=== PATIENT | male | born 1965 | race African-American/Black ===

== ENCOUNTER 2018-10-20 13:00 | Emergency (ER) | payer MEDICAID, OTHER ==
--- NOTE | 2018-10-20 17:48 | ED ---
Back Pain - HPI Summary HPI Summary: Pt here w/ worsening of back pain and developed Lt lateral thigh pain yesterday while walking. Denies numbness, tingling, weakness or change in bowel/bladder habits. Has "disc issues" and had an MRI -follows w/ Dr. Hilary Trujillo however has consult with neurosurgery this week. Reports his roommates recently took is medications as it was "time (for him) to move out". He was recently approved for Section 8 housing but has not found a place to live yet - he is staying at a friend's house in the [facility]. Has been taking oxycodone 10mg TID plus gabapentin 600mg TID daily for back pain (confirmed with [facility]/pharmacy check). Needs meds until he can be seen by Dr. Trujillo this week. No new acute injuries. Concerned about withdrawal from medication - no sx at this time. - History of Current Complaint Chief Complaint: EDExtremityLower Stated Complaint: LEFT LEG PAIN PER EMS Time Seen by Provider: 10/20/18 14:59 Hx Obtained From: Patient Pain Intensity: 8 - Allergies/Home Medications Allergies/Adverse Reactions: Allergies Allergy/AdvReac Type Severity Reaction Status Date / Time No Known Allergies Allergy Verified 10/20/18 13:05 PMH/Surg Hx/FS Hx/Imm Hx Previously Healthy: Yes Endocrine/Hematology History: Denies: Hx Anticoagulant Therapy, Hx Diabetes Cardiovascular History: Reports: Hx Hypertension - MEDICATED Denies: Hx Pacemaker/ICD History: Denies: Hx Renal Disease Musculoskeletal History: Reports: Hx Back Problems - disc issues per pt Sensory History: Denies: Hx Hearing Aid Psychiatric History: Denies: Hx Eating Disorder, Hx Panic Disorder, Hx of Violent Episodes Against Others - Surgical History Surgery Procedure, Year, and Place: HERNIA REPAIR. RT SHOULDER SURGERY RCT Infectious Disease History: No Infectious Disease History: Denies: Traveled Outside the [place] in Last 30 Days - Social History Lives: With Family - with friend Alcohol Use: None Substance Use Type: Reports: Synthetic Drugs Substance Use Comment - Amount & Last Used: rx'd oxycodone by PCP Hx Tobacco Use: Yes Type: Cigarettes Length of Time of Smoking/Using Tobacco: 20 YRS Have You Smoked in the Last Year: Yes Review of Systems Constitutional: Negative Negative: Fever, Chills, Fatigue Eyes: Negative ENT: Negative Cardiovascular: Negative Respiratory: Negative Gastrointestinal: Negative Genitourinary: Negative Positive: Arthralgia Skin: Negative Neurological: Negative Positive: Anxious All Other Systems Reviewed And Are Negative: Yes Physical Exam Triage Information Reviewed: Yes Vital Signs On Initial Exam: Initial Vitals Temp Pulse Resp BP Pulse Ox 98.9 F 97 12 141/87 99 10/20/18 13:00 10/20/18 13:00 10/20/18 13:00 10/20/18 13:00 10/20/18 13:00 Vital Signs Reviewed: Yes Appearance: Positive: Well-Appearing, Pain Distress - mild while lying on stretcher - worse w/ movement, ambulation, Thin Skin: Positive: Warm, Skin Color Reflects Adequate Perfusion, Dry Head/Face: Positive: Normal Head/Face Inspection Eyes: Positive: EOMI ENT: Positive: Hearing grossly normal, Pharynx normal - mucosa moist. Negative : Nasal drainage Respiratory/Lung Sounds: Positive: Breath Sounds Present Cardiovascular: Positive: Normal, RRR. Negative: Leg Edema Left, Leg Edema Right Abdomen Description: Positive: Nontender, Soft Musculoskeletal: Positive: Strength/ROM Intact, Pain @ - Lt lateral thigh TTP along ITB - no SI joint pain Neurological: Positive: Normal, Sensory/Motor Intact, Alert, Oriented to Person Place, Time Psychiatric: Positive: Anxious - but pleasant, cooperative Diagnostics - Vital Signs Vital Signs Temp Pulse Resp BP Pulse Ox 10/20/18 13:00 98.9 F 97 12 141/87 99 - Laboratory Lab Statement: Any lab studies that have been ordered have been reviewed, and results considered in the medical decision making process. Back Pain Course/Dx - Course Course Of Treatment: Suspect ITB syndrome from abnormal gait with back pain. Recommended conservative care for ITB syndrome - NSAID's, heat, stretches, topical analgesics and PT if warranted by PCP. Also provided with short supply of oxycodone and gabapentin until he can be seen by Dr. Trujillo this week to prevent withdrawal (meds confirmed on audit). - Diagnoses Provider Diagnoses: Lumbar pain, ITB syndrome Discharge - Sign-Out/Discharge Documenting (check all that apply): Patient Departure Patient Received Moderate/Deep Sedation with Procedure: No - Discharge Plan Condition: Stable Disposition: HOME Prescriptions: Gabapentin CAP(*) [Neurontin 300 CAP(*)] 600 mg PO TID #12 cap Gabapentin CAP(*) [Neurontin 300 CAP(*)] 600 mg PO TID #12 cap Oxycodone TAB(NF) [Oxycodone HCl 10 MG] 10 mg PO Q8H PRN #6 tab MDD 3 PRN Reason: Pain oxyCODONE TAB* [Roxycodone TAB 5 mg*] 10 mg PO Q8H PRN #12 tab MDD 6 PRN Reason: Pain Patient Education Materials: Chronic Back Pain (DC), Iliotibial Band Syndrome ( ED) Referrals: Malorie Trujillo MD [Primary Care Provider] - Additional Instructions: Read educational handouts for care of your back pain and ITB syndrome. You may benefit from physical therapy if your thigh pain does not improve - inquire with your PCP. Follow-up with PCP and neurosurgery for back issue. You have been given a short course of your daily pain medications as well until this week when you can be seen by Dr. Trujillo - call Monday to schedule appointment. *If you develop numbness, tingling, weakness or change in bowel/bladder habits, return to the ED - Billing Disposition and Condition Condition: STABLE Disposition: Home
[2018-10-20] MEDS ORDERED: oxyCODONE TAB* 5 MG TAB PO ONE (17:53)
[2018-10-20] MEDS ORDERED: Ketorolac INJ* 60 MG/2 ML VIAL IM ONE (17:53)
[2018-10-20] MEDS ORDERED: Gabapentin TAB(NF) 600 MG PO ONE (17:54)
[2018-10-20] MEDS ORDERED: Gabapentin CAP(*) 300 MG PO ONE (18:00)
[2018-10-20 18:22] VITALS: BP 141/78
== END 2018-10-20 18:21 | disposition home or self-care (01) ==
LOC: ED 13:00
DX: M54.5 Low back pain (principal); M76.32 Iliotibial band syndrome, left leg; I10 Essential (primary) hypertension; F17.210 Nicotine dependence, cigarettes, uncomplicated
CPT/HCPCS: 96372; 99282; A9270-GY; J1885

== ENCOUNTER 2018-10-24 15:22 | Emergency (ER) | payer OTHER ==
[2018-10-24] MEDS ORDERED: oxyCODONE/Acetamin 5/325 MG* TAB PO ONE ×2 (19:05→19:47)
[2018-10-24] MEDS ORDERED: Ketorolac INJ* 30 MG/ML 1 ML VIAL IM ONE (19:47)
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
[2018-10-24] MEDS ORDERED: predniSONE TAB* 20 MG PO ONE (20:34)
[2018-10-24 21:11] VITALS: BP 144/87
== END 2018-10-24 21:10 | disposition home or self-care (01) ==
LOC: ED 15:22
DX: M79.605 Pain in left leg (principal); I10 Essential (primary) hypertension; F17.210 Nicotine dependence, cigarettes, uncomplicated; Z79.899 Other long term (current) drug therapy
CPT/HCPCS: 96372; 99282; A9270-GY; J1885; J7512

== ENCOUNTER 2019-01-23 01:18 | Emergency (ER) | payer MEDICAID ==
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
[2019-01-23 04:25] VITALS: BP 153/96
== END 2019-01-23 04:34 | disposition home or self-care (01) ==
LOC: ED 01:18
DX: K40.90 Unilateral inguinal hernia, without obstruction or gangrene, not specified as recurrent (principal); I10 Essential (primary) hypertension; F17.210 Nicotine dependence, cigarettes, uncomplicated; Z79.899 Other long term (current) drug therapy
CPT/HCPCS: 99282

== ENCOUNTER 2019-07-14 20:24 | Emergency (ER) | payer MEDICAID ==
--- OUTSIDE RECORDS SUMMARY | 2019-07-14 20:34 | XMS REPORT | Summary of Care ---
:1965 Author Organization [facility] Address [address] [place] [address] Care Team Providers Name Role Phone Malorie Trujillo MD Primary Care Provider Reason for Visit Reason Comments Follow-up Encounter Details Date Type Department Care Team Description 06/13/2019 Office Visit [facility], [facility] retinal Vision Care MD Mikala detachment (Primary [address]) [address] [place] [id number] [phone] Allergies No Known Allergiesdocumented as of this encounter (statuses as of 06/16/2019) Medications Medication Sig Dispensed Refills Start Date End Date Status isosorbide mononitrate Take 1 tablet by 30 tablet 2 12/29/2018 12/28/2019 Active (IMDUR) 30 MG 24 hr mouth daily tablet Additional information Patient not taking. Reported on 03/05/2019 2:40 PM Sennosides (SENNA) 8.6 MG Take 2 tablets by mouth 120 each 0 12/29/2018 Active TABS tablet nightly Additional information Patient not taking. Reported on 03/05/2019 2:40 PM cyclopentolate (CYCLODRYL) 1 % Place 1 drop into the 2 mL 0 01/09/2019 Active ophthalmic solution right eye Three times daily Additional information Patient not taking. Reported on 05/09/2019 9:17 AM hydrochlorothiazide hydrochlorothiazide 25 mg tablet 0 Active (HYDRODIURIL) 25 MG tablet Take 1 tablet every day by oral route for 30 days. lisinopril (PRINIVIL,ZESTRIL) lisinopril 20 mg tablet 0 Active 20 MG tablet Take 1 tablet every day by oral route for 30 days. Oxycodone HCl 10 MG TABS oxycodone 10 mg tablet 0 Active Take 1 tablet 3 times a day by oral route as needed for 30 days. naloxone (NARCAN) 4 MG/0.1ML Narcan 4 mg/actuation nasal spray 0 Active nasal spray use as directed Atropine Sulfate 1 % Place 1 drop into the right 2 mL 2 05/09/2019 Active Ophthalmic Solution eye Three times daily Additional information Patient not taking. Reported on 06/12/2019 9:25 AM Ofloxacin 0.3 % Ophthalmic Place 1 drop into the 5 mL 0 06/12/20192019 Active Solution (OCUFLOX) right eye Four times daily for 10 days prednisoLONE Acetate 1 % Place 1 drop into 5 mL 0 06/12/2019 Active Ophthalmic Suspension (PRED both eyes Four times FORTE) daily Shake bottle Hcijjznn-Gvhbdmcre-Whflfdwi Place 1 inch into the 7.5 g 1 06/12/2019 Active 0.1 % Ophthalmic Ointment right eye Three times (MAXITROL) daily Hospital, Clinic, or Ordered Dose Route Frequency Start Date End Date Status Other Facility Administered Medication proparacaine (ALCAINE) 1 drop Both Eyes Once 06/13/2019 06/13/2019 Ended 0.5 % ophthalmic solution 1 drop tropicamide (MYDRIACYL) 1 drop Both Eyes Once 06/13/2019 06/13/2019 Ended 1 % ophthalmic solution 1 drop phenylephrine (MYDFRIN) 1 drop Both Eyes Once 06/13/2019 06/13/2019 Ended 2.5 % ophthalmic solution 1 drop documented as of this encounter (statuses as of 06/16/2019) Active Problems Problem Noted Date Right retinal detachment 01/17/2019 Osteomyelitis 12/15/2018 Acute septic pulmonary embolism 11/10/2018 Polysubstance (including opioids) dependence, daily use 11/09/2018 Sepsis due to methicillin resistant Staphylococcus aureus (MRSA) 11/08/2018 Bilateral endophthalmia 11/08/2018 Septic embolism 11/08/2018 Abscess of upper extremity 11/08/2018 IVDU (intravenous drug user) 11/08/2018 Acute myopericarditis 11/07/2018 Dysphagia 09/10/2013 Back pain 07/02/2013 Postop check 04/23/2013 GERD (gastroesophageal reflux disease) 10/09/2012 Cholelithiasis 10/09/2012 SI joint arthritis 08/03/2012 Acute respiratory failure with hypoxia Pleural effusion documented as of this encounter (statuses as of 06/16/2019) Resolved Problems Problem Noted Date Resolved Date Skin bulla 11/12/2018 12/04/2018 Overview: Right 3rd finger Pressure injury of coccygeal region, unstageable 11/09/2018 12/18/2018 documented as of this encounter (statuses as of 06/16/2019) Social History Tobacco Use Types Packs/Day Years Used Date Current Some Day Smoker Cigarettes 0.5 Smokeless Tobacco: Former User Comments: 4-5 a day Alcohol Use Drinks/Week oz/Week Comments No Sex Assigned at Date Recorded Not on file Job Start Date Occupation Industry Not on file Not on file Not on file Travel History Travel Start Travel End No recent travel history available. documented as of this encounter Last Filed Vital Signs Not on filedocumented in this encounter Patient Instructions Patient InstructionsMikala Dye MD - 06/13/2019 12:30 PM ESTPlease follow the physician's instructions as communicated during the office visit. Medications should be taken/given as prescribed or recommended by the physician. Please keep the follow-up appointment as recommended by the physician and return sooner if any changes, questions, or concerns arise. documented in this encounter Progress Notes Mikala Dye MD - 06/13/2019 12:30 PM EST Chief Complaint Patient presents with Follow-up HPI 1 day f/u- PO PPV OD Hx: Recurrent rhegmatogenous RD, OD Last edited by Cyndee Izaguirre on 06/13/2019 12:29 PM. (History) History: Patient's medications, allergies, past medical, surgical, social, and family histories werereviewed and updated as appropriate. Past Surgical History: Procedure Laterality Date HEMORRHOID SURGERY NONE MD DEBRIDEMENT, SKIN, SUB-Q TISSUE,MUSCLE,BONE,=<20 SQ CM Bilateral 11/10/2018 Procedure: 1. Fasciotomy with debridement of left thigh 2. I & D of fluid collection per Dr. Page; Surgeon: Jermain Page MD; Location: OR 5E; Service : Orthopedics; Laterality: Bilateral; MD DEBRIDEMENT, SKIN, SUB-Q TISSUE,MUSCLE,BONE,=<20 SQ CM Left 2018 Procedure: DEBRIDEMENT; SKIN, SUBQ TISSUE, MUSCLE, & BONE OF BILATERAL THIGHS, I&D BILATERAL ARM ABSCESSES; Surgeon: oJse Lockwood MD; Location: OR 5E; Service: Orthopedics; Laterality: Left; MD INJ DX/THER AGNT PARAVERT FACET JOINT, LUMBAR/SAC, 2ND LEVEL Right Procedure: RIGHT LUMBAR FACET LEVEL L4, L5 ALA INJECTIONS WITH C-ARM; Surgeon : Daron Romero MD; Location: OR [facility]; Service: Pain; Laterality: Right; RETINAL DETACHMENT SURGERY Right 01/08/2019 01/08/19 (lensectomy, retinectomy, EL, PPV, SO and MAGEN of Vancomycin ROTATOR CUFF REPAIR right Past Medical History: Diagnosis Date Bipolar 1 disorder GERD (gastroesophageal reflux disease) Herniated disc Hiatal hernia Hypertension Polysubstance (including opioids) dependence, daily use 11/09/2018 Pulmonary embolism 11/2018 Retinal detachment Vision abnormalities History reviewed. No pertinent family history. Social History Socioeconomic History Marital status: Legally Spouse name: Not on file Number of children: Not on file Years of education: Not on file Highest education level: Not on file Occupational History Not on file Social Needs Financial resource strain: Not on file Food insecurity: Worry: Not on file Inability: Not on file Transportation needs: Medical: Not on file Non-medical: Not on file Tobacco Use Smoking status: Current Some Day Smoker Packs/day: 0.50 Types: Cigarettes Smokeless tobacco: Former User Tobacco comment: 4-5 a day Substance and Sexual Activity Alcohol use: No Drug use: Yes Types: Cocaine Comment: last used Cocaine few days ago, sniffed a few lines. Sexual activity: Not on file Lifestyle Physical activity: Days per week: Not on file Minutes per session: Not on file Stress: Not on file Relationships Social connections: Talks on phone: Not on file Gets together: Not on file Attends synagogue service: Not on file Active member of club or organization: Not on file Attends meetings of clubs or organizations: Not on file Relationship status: Not on file Intimate partner violence: Fear of current or ex partner: Not on file Emotionally abused: Not on file Physically abused: Not on file Forced sexual activity: Not on file Other Topics Concern Not on file Social History Narrative Not on file Review of Systems: positive for Eyes All other systems have been reviewed and are negative. OPHTH Exam: Base Eye Exam Visual Acuity (Snellen - Linear) Right Left Dist sc HM 20/20 -2 Tonometry (Tonopen, 12:39 PM) Right Left Pressure 20 19 Pupils Dark Right 6 Left 3 Visual Aquino Left Right Full Restrictions Total superior temporal, inferior temporal, superior nasal, inferior nasal deficiencies Extraocular Movement Right Left Full Full Complains of some pain when looking side to side Neuro/Psych Oriented x3: Yes Mood/Affect: Normal Dilation Both eyes: 1.0% Tropicamide/2.5% Phenylephrine @ 12:39 PM Slit Lamp and Fundus Exam External Exam Right Left External Normal Normal Slit Lamp Exam Right Left Lids/Lashes edema Normal Conjunctiva/Sclera 2+ injection, zachary White and Quiet Cornea DM folds Clear, inf spk Anterior Chamber proteinaceous material, trace cells Deep and Quiet Iris Inferior large PI Flat, Round Lens Aphakic 2+ NS Vitreous SiO fill, hazy view 2+ haze, debris settled inf, vitreous strands in mid-vitreous Fundus Exam Right Left Disc hazy view C/D Ratio 0.2 Macula flat, Vessels Vascular attenuation Periphery 360 retinectomy, minimal overlying VH, grossly flat We administered proparacaine, tropicamide, and phenylephrine. The following tests were performed today and reviewed with the patient (for the professional interpretation refer to the Oph Proc tab in chart review): DX/Plan: Art Haque is a 54 y.o. male with: # Recurrent rhegmatogenous RD, OD repaired(Robert/Keri)with MAGEN of vancomycin, ceftazadime, and voriconazole OU - 11/23/18 New funnelRDnoted 01/01/19 Repair OD 01/08/19 (Jayla/[place]) w/ lensectomy, retinectomy, EL, PPV, SO and MAGEN of vancomycin Repair 06/11/19 (Jayla/Carmina)PPV/MV/EL/180 retinectomy/RD repair/oil placement. During surgery, there was a choroidal bleed History of non compliance with drops, missing appointments including surgery, cancellation of surgery due to positive cocaine tests [facility] stable, IOP acceptable Retina attached centrally Plan: Patching at night PF 6x/day OD Ocuflox QID OD Atropine BID OD maxitrol lexy TID OD - Keep eye shield overnight for next 7 days - Avoid getting water or soap in the eye for 3 days - Avoid heavy activity/heavy lifting until next visit - - restrict face down position for 5-7 days discussed. We discussed and emphasized the the importance of face down positioning in surgical success and visual outcome. Patient verbalized that understood and will follow the instructions. - Written instruction for post op care and eye drops given - Patient to call with any change, concern, or new ophthalmic or eye related issues. # Monocular precautions Polycarbonate glasses mrx given Patient should follow in retina clinic for optimization of vision OS #History of endogenous endophthalmitis OU Secondary toMRSAbacteria in the setting of active IVDUin 11/2018 Was admitted for severe sepsis and septic embolic to lungs B scan11/08/18with vitreous debris OS>OD CTH w/o signs of septic emboli to brain CIRILO showed no vegetations IVIvancomycin, ceftazadime, and voriconazole OU 11/08/18 Vitreous tap OUcultures without growthx 7 days MAGEN Vancomycin, Ceftazidime, and Voriconazole OS 11/12/18 #Vitritis,OS Improved Patient to call with any change, concern, or new ophthalmic or eye related issues. F/U: Return in about 1 week (around 06/20/2019) for AM, [facility] . Jeffrey Dye MD PhD Attending Vitreoretina Service Department of Ophthalmology and Visual Sciences documented in this encounter Plan of Treatment Date Type Specialty Care Team Description 06/20/2019 Office Visit Ophthalmology Health Maintenance Due Date Last Done Comments MMR Vaccines (1 of - 1966 Standard series) Varicella Vaccines ( of - 1966 2-dose childhood series) Pneumococcal Vaccine: 1971 Pediatrics (0 to 5 Years) and At-Risk Patients (6 to 64 Years) (1 of - PPSV23) Colon Cancer Screening 10 yrs 2015 DTaP,Tdap,and Td Vaccines (2 08/11/2017 07/14/2017 - Td) Influenza Vaccine 02/05/2019 Pneumococcal Vaccine: 65+ 2030 Years (1 of 2 - PCV13) Hepatitis C Screening (B. Completed 04/02/2013 [id number]) Hepatitis A Vaccines Aged Out 08/20/2018 No longer eligible based on patient's age to complete this topic Hepatitis B Vaccines Aged Out 10/02/2018, No longer eligible based 08/20/2018 on patient's age to complete this topic HIV Screening Completed 11/14/2018 HIB Vaccines Aged Out No longer eligible based on patient's age to complete this topic IPV Vaccines Aged Out No longer eligible based on patient's age to complete this topic documented as of this encounter Results Not on filedocumented in this encounter Visit Diagnoses Diagnosis Right retinal detachment - Primary Unspecified retinal detachment documented in this encounter Administered Medications Medication Order MAR Action Action Date Dose Rate Site phenylephrine (MYDFRIN) 2.5 % Given 06/13/2019 12:39 PM EST 1 drop ophthalmic solution 1 drop 1 drop, Both Eyes, Once, Alejandra 2/6/20 at 1230, For 1 dose proparacaine (ALCAINE) 0.5 % ophthalmic Given 06/13/2019 12:39 PM EST 1 drop solution 1 drop 1 drop, Both Eyes, Once, Alejandra 2/6/20 at 1230, For 1 dose tropicamide (MYDRIACYL) 1 % ophthalmic Given 06/13/2019 12:39 PM EST 1 drop solution 1 drop 1 drop, Both Eyes, Once, Alejandra 2/6/20 at 1230, For 1 dose documented in this encounter Additional Health Concerns Infection Noted Time Resolved Time MRSA (Methicillin Resistant Staphylococcus 11/10/2018 7:35 AM EDT aureus) documented as of this encounter
--- OUTSIDE RECORDS SUMMARY | 2019-07-14 20:34 | XMS REPORT | Summary of Care ---
:1965 Author Organization [facility] Address [address] [place] [address] Care Team Providers Name Role Phone Malorie Trujillo MD Primary Care Provider Reason for Visit Reason Comments Retinal Detachment Encounter Details Date Type Department Care Team Description 06/20/2019 Office Visit [facility] Aftercare following Vision Care MD Alok surgery of a sense [address] [place] [address] Ctr organ (Primary Dx) [address] [place] [phone] Allergies No Known Allergiesdocumented as of this encounter (statuses as of 06/30/2019) Medications Medication Sig Dispensed Refills Start Date [...] mg tablet 0 Active (HYDRODIURIL) 25 MG Take 1 tablet every day by oral route for 30 days. tablet lisinopril lisinopril 20 mg tablet 0 Active (PRINIVIL,ZESTRIL) 20 MG Take 1 tablet every day by oral route for 30 days. tablet Oxycodone HCl 10 MG TABS oxycodone 10 mg tablet 0 Active Take 1 tablet 3 times a day by oral route as needed for 30 days. naloxone (NARCAN) 4 Narcan 4 mg/actuation nasal spray 0 Active MG/0.1ML nasal spray use as directed Atropine Sulfate 1 % Place 1 drop into the 2 mL 2 05/09 Active Ophthalmic Solution right eye Three times daily Cgbqgrsq-Fqjpnevyp-Rodknl Place 1 inch into the 7.5 g 1 06/12 Active th 0.1 % Ophthalmic right eye Three times Ointment (MAXITROL) daily Sodium Chloride Place 1 drop into the 15 mL 1 06/20 06/18 Active (Hypertonic) 2 % right eye Four times /2019 Ophthalmic Solution (TAVO daily 128) prednisoLONE Acetate 1 % Place 1 drop into both 5 mL 0 06/20 Active Ophthalmic Suspension eyes Four times daily (PRED FORTE) Shake bottle Ofloxacin 0.3 % Place 1 drop into the 5 mL 0 06/12 06/22 Ophthalmic Solution right eye Four times /2019 (OCUFLOX) daily for 10 days prednisoLONE Acetate 1 % Place 1 drop into both 5 mL 0 06/12 06/20 Discontinued Ophthalmic Suspension eyes Four times daily /2019 (Reorder) (PRED FORTE) Shake bottle Hospital, Clinic, or Ordered Dose Route Frequency Start Date End Date Status Other Facility Administered Medication tropicamide (MYDRIACYL) 1 drop Both Eyes Once 06/20/2019 06/20/2019 Ended 1 % ophthalmic solution 1 drop phenylephrine (MYDFRIN) 1 drop Both Eyes Once 06/20/2019 06/20/2019 Ended 2.5 % ophthalmic solution 1 drop proparacaine (ALCAINE) 1 drop Both Eyes Once 06/20/2019 06/20/2019 Ended 0.5 % ophthalmic solution 1 drop documented as of this encounter (statuses as of 06/30/2019) Active Problems Problem Noted Date Right retinal detachment 01/17/2019 Osteomyelitis 12/15/2018 Acute septic pulmonary embolism 11/10/2018 Polysubstance (including opioids) dependence, daily use 11/09/2018 Sepsis due to methicillin resistant Staphylococcus aureus (MRSA) 11/08/2018 Bilateral endophthalmia 11/08/2018 Septic embolism 11/08/2018 Abscess of upper extremity 11/08/2018 IVDU (intravenous drug user) 11/08/2018 Acute myopericarditis 11/07/2018 Dysphagia 09/10/2013 Back pain 07/02/2013 Aftercare following surgery of a sense organ 04/23/2013 GERD (gastroesophageal reflux disease) 10/09/2012 Cholelithiasis 10/09/2012 SI joint arthritis 08/03/2012 Acute respiratory failure with hypoxia Pleural effusion documented as of this encounter (statuses as of 06/30/2019) Resolved Problems Problem Noted Date Resolved Date Skin bulla 11/12/2018 12/04/2018 Overview: Right 3rd finger Pressure injury of coccygeal region, unstageable 11/09/2018 12/18/2018 documented as of this encounter (statuses as of 06/30/2019) Social History Tobacco Use Types Packs/Day Years [...] filedocumented in this encounter Patient Instructions Patient InstructionsMark Grewal MD - 06/20/2019 9:30 AM ESTPlease follow the physician's instructions as communicated during the office visit. Medications should be taken/given as prescribed or recommended by the physician. Please keep the follow-up appointment as recommended by the physician and return sooner if any changes, questions, or concerns arise. STOP Stop Ocuflox (YANG TOP) & Atropine (RED TOP) Continue Prednisolone (PINK TOP) 6x/day RIGHT EYE Start TAVO, 1 drop FOUR TIMES DAILY, RIGHT EYE documented in this encounter Progress Notes Mark Grewal MD - 06/20/2019 9:30 AM EST Chief Complaint Patient presents with Retinal Detachment HPI S/P PPV 06/12/2019 DFE Last edited by RACQUEL Dodson on 06/20/2019 10:13 AM. (History) History: Patient's medications, allergies, past medical, surgical, social, and family histories werereviewed and updated as appropriate. Past Surgical History: Procedure Laterality Date HEMORRHOID SURGERY NONE NV DEBRIDEMENT, SKIN, SUB-Q TISSUE,MUSCLE,BONE,=<20 SQ CM Bilateral 11/10/2018 Procedure: 1. Fasciotomy with debridement of left thigh 2. I & D of fluid collection per Dr. Page; Surgeon: Jermain Page MD; Location: OR 5E; Service : Orthopedics; Laterality: Bilateral; NV DEBRIDEMENT, SKIN, SUB-Q TISSUE,MUSCLE,BONE,=<20 SQ CM Left 2018 Procedure: DEBRIDEMENT; SKIN, SUBQ TISSUE, MUSCLE, & BONE OF BILATERAL THIGHS, I&D BILATERAL ARM ABSCESSES; Surgeon: Jose Lockwood MD; Location: OR 5E; Service: Orthopedics; Laterality: Left; NV INJ DX/THER AGNT PARAVERT FACET JOINT, LUMBAR/SAC, 2ND LEVEL Right Procedure: RIGHT LUMBAR FACET LEVEL L4, L5 ALA INJECTIONS WITH C-ARM; Surgeon : Daron Romero MD; Location: OR [address] [place] [address]; Service: Pain; Laterality: Right; RETINAL DETACHMENT SURGERY [...] file Gets together: Not on file Attends restorationism service: Not on file Active member of [...] Dist sc HM 20/20 -2 Tonometry (Tonopen, 10:14 AM) Right Left Pressure 15 12 Pupils Dark APD Right 6 None Left 3 None Visual Aquino Left Right Restrictions Total superior temporal, inferior temporal, superior nasal, inferior nasal deficiencies Neuro/Psych Oriented x3: Yes Mood/Affect: Normal Dilation Both eyes: 1.0% Tropicamide/2.5% Phenylephrine @ 10:22 AM Slit Lamp and Fundus Exam External Exam Right Left External Normal Normal Slit Lamp Exam Right Left Lids/Lashes Normal Normal Conjunctiva/Sclera 1+ injection, zachary White and Quiet Cornea DM folds Clear, inf spk Anterior Chamber proteinaceous material, 2+ suspended rbcs; no fibrin or hypopyon. Deep and Quiet Iris Inferior large PI w/ scant heme along edges, open Flat, Round Lens Aphakic 2+ NS Vitreous 8--90SiO fill, hazy view 2+ haze, debris settled inf, vitreous strands in mid-vitreous Fundus Exam Right Left Disc hazy view C/D Ratio 0.2 Macula flat, Vessels Vascular attenuation Periphery 360 retinectomy,, grossly flat. IT faint elevation at area of focal RR? Minimal heme along edges of retinectomy We administered tropicamide, phenylephrine, and proparacaine. The following tests were performed today and reviewed with the patient (for the professional interpretation refer to the Oph Proc tab in chart review): DX/Plan: Art Haque is a 54 y.o. male with: #Recurrent rhegmatogenous RD, OD Repaired(Robert/Keri)with MAGEN of vancomycin, ceftazadime, and voriconazole OU - 11/23/18 New funnelRDnoted 01/01/19 Repair OD 01/08/19 (Jayla/[place]) w/ lensectomy, retinectomy, EL, PPV, SO and MAGEN of vancomycin History of non compliance with drops, missing appointments including surgery, cancellation of surgery due to positive cocaine tests Repair 06/11/19 (Jayla/Carmina)PPV/MV/EL/Sup 180 retinectomy/RD repair/ oil (5000) placement. - Dense membranes encountered intraop w/ choroidal hemorrhage at 3 O Clock - Retina attached centrally, suspicious area IT Plan: PF 6x/day OD Stop Ocuflox QID OD & Atropine BID OD STOP maxitrol lexy TID OD Start TAVO gtts QID Avoid heavy activity/heavy lifting until next visit Written instruction for post op care and eye drops given Patient to call with any change, concern, [...] Ceftazidime, and Voriconazole OS 11/12/18 #Vitritis,OS Improved Counseling provided for the following issues, either verbally and/or hand-out: N /A Seen with ARNIE Constantino Patient to call with any change, concern, or new ophthalmic or eye related issues. F/U: Return in about 2 weeks (around 07/04/2019) for [facility]. Dilate yes Mark Grewal M.D. Resident's history reviewed, patient interviewed and examined. Assessment and plan reviewed with resident. IJayla Patrick R, MD, agree with the diagnosis and treatment plan as documented by the resident. Arnie Dickerson MD documented in this encounter Plan of Treatment Date Type Specialty Care Team Description 07/04/2019 Office Visit Ophthalmology Health Maintenance Due Date Last Done Comments MMR Vaccines (1 of 1 - 1966 Standard series) Varicella Vaccines (1 of 2 - 1966 2-dose childhood series) Pneumococcal Vaccine: 1971 Pediatrics (0 to 5 Years) and At-Risk Patients (6 to 64 Years) (1 of 1 - PPSV23) Colon Cancer Screening 10 yrs 2015 DTaP,Tdap,and Td Vaccines (2 08/11/2017 07/14/2017 - Td) Influenza Vaccine 02/05/2019 Pneumococcal Vaccine: 65+ 2030 Years (1 of 2 - PCV13) Hepatitis C Screening (B. Completed 04/02/2013 [id number]) Hepatitis A Vaccines Aged Out 08/20/2018 No [...] filedocumented in this encounter Visit Diagnoses Diagnosis Aftercare following surgery of a sense organ - Primary Aftercare following surgery of the sense organs, NEC documented in this encounter Administered Medications Medication Order MAR Action Action Date Dose Rate Site phenylephrine (MYDFRIN) 2.5 % Given 06/20/2019 10:14 AM EST 1 drop ophthalmic solution 1 drop 1 drop, Both Eyes, Once, Alejandra 06/20/19 at 1015, For 1 dose proparacaine (ALCAINE) 0.5 % ophthalmic Given 06/20/2019 10:14 AM EST 1 drop solution 1 drop 1 drop, Both Eyes, Once, Alejandra 06/20/19 at 1015, For 1 dose tropicamide (MYDRIACYL) 1 % ophthalmic Given 06/20/2019 10:14 AM EST 1 drop solution 1 drop 1 drop, Both Eyes, Once, Alejandra 06/20/19 at 1015, For 1 dose documented in this encounter Additional Health Concerns Infection Noted Time Resolved Time MRSA (Methicillin Resistant Staphylococcus 11/10/2018 7:35 AM EDT aureus) documented as of this encounter
--- OUTSIDE RECORDS SUMMARY | 2019-07-14 20:34 | XMS REPORT | Summary of Care ---
:1965 Author Organization [facility] Address [address] [place] [address] Care Team Providers Name Role Phone Malorie Trujillo MD Primary Care Provider Reason for Visit Reason Comments Retinal Detachment Encounter Details Date Type Department Care Team Description 07/11/2019 Office Visit [facility] Noe House Aftercare following Vision Care MD Karen surgery of a sense [address] [place] [address] organ (Primary Dx) [address] [place] [id number] Allergies No Known Allergiesdocumented as of this encounter (statuses as of 07/11/2019) Medications Medication Sig Dispensed Refills Start Date End Date Status isosorbide mononitrate Take 1 tablet 30 tablet 2 12/29/2018 12/28/2019 Active (IMDUR) 30 MG 24 hr by mouth daily tablet Sennosides (SENNA) 8.6 Take 2 tablets 120 each 0 12/29/2018 Active MG TABS tablet by mouth nightly cyclopentolate Place 1 drop 2 mL 0 01/09/2019 Active (CYCLODRYL) 1 % into the right ophthalmic solution eye Three times daily Additional information Patient not taking. Reported on 07/11/2019 9:33 AM hydrochlorothiazide hydrochlorothiazide 25 mg tablet 0 Active (HYDRODIURIL) 25 MG tablet Take 1 tablet every day by oral route for 30 days. lisinopril lisinopril 20 mg tablet 0 Active [...] drop into the right 2 mL 2 05/09/19 Active Ophthalmic Solution eye Three times daily [address] Place 1 inch into the right 7.5 g 1 06/12/19 Active 0.1 % Ophthalmic Ointment eye Three times daily 20 (MAXITROL) Sodium Chloride Place 1 drop into the right 15 mL 1 06/20/19 06/18/19 Active (Hypertonic) 2 % Ophthalmic eye Four times daily 20 21 Solution (TAVARES 128) prednisoLONE Acetate 1 % Place 1 drop into both eyes 5 mL 0 06/20/19 Active Ophthalmic Suspension (PRED Four times daily Shake 20 FORTE) bottle Additional information Patient taking differently: 1 drop Right Eye, (No frequency reported), Shake bottle. 6x a day right eye, Reported on 07/11/2019 9:33 AM Hospital, Clinic, or Ordered Dose Route Frequency Start Date End Date Status Other Facility Administered Medication tropicamide (MYDRIACYL) 1 drop Both Eyes Once 07/11/2019 07/11/2019 Ended 1 % ophthalmic solution 1 drop phenylephrine (MYDFRIN) 1 drop Both Eyes Once 07/11/2019 07/11/2019 Ended 2.5 % ophthalmic solution 1 drop proparacaine (ALCAINE) 1 drop Both Eyes Once 07/11/2019 07/11/2019 Ended 0.5 % ophthalmic solution 1 drop documented as of this encounter (statuses as of 07/11/2019) Active Problems Problem Noted Date Right retinal [...] as of this encounter (statuses as of 07/11/2019) Resolved Problems Problem Noted Date Resolved Date Skin bulla 11/12/2018 12/04/2018 Overview: Right 3rd finger Pressure injury of coccygeal region, unstageable 11/09/2018 12/18/2018 documented as of this encounter (statuses as of 07/11/2019) Social History Tobacco Use Types Packs/Day Years [...] filedocumented in this encounter Patient Instructions Patient InstructionsNoe House MD - 07/11/2019 9:45 AM ESTPlease follow the physician's instructions as communicated during the office visit. Medications should be taken/given as prescribed or recommended by the physician. Please keep the follow-up appointment as recommended by the physician and return sooner if any changes, questions, or concerns arise. Dropes PF 4x/day right eye Continue TAVARES drops 4x per day Avoid heavy activity/heavy lifting until next visit Patient to call with any change, concern, or new ophthalmic or eye related issues. documented in this encounter Progress Notes Noe House MD - 07/11/2019 9:45 AM EST Chief Complaint Patient presents with Retinal Detachment HPI Retinal Detachment In right eye. Comments NEPTALI 06/20/19 2wk f/u Recurrent Rhegmaogenous RD OD. Patient sts can see more light right eye. Denies ocular pain but eye feels tired. Meds: PF 6xday OD, and Tavares gtts QID OD. Most the time remember drops. Last edited by Latasha Garcia on 07/11/2019 9:31 AM. (History) History: Patient's medications, allergies, past medical, surgical, social, and family histories werereviewed and updated as appropriate. Past Surgical History: Procedure Laterality Date HEMORRHOID SURGERY NONE IN DEBRIDEMENT, SKIN, SUB-Q TISSUE,MUSCLE,BONE,=<20 SQ CM Bilateral 11/10/2018 Procedure: 1. Fasciotomy with debridement of left thigh 2. I & D of fluid collection per Dr. Page; Surgeon: Jermain Page MD; Location: OR 5[facility]; Service : Orthopedics; Laterality: Bilateral; IN DEBRIDEMENT, SKIN, SUB-Q TISSUE,MUSCLE,BONE,=<20 SQ CM Left 2018 Procedure: DEBRIDEMENT; SKIN, SUBQ TISSUE, MUSCLE, & BONE OF BILATERAL THIGHS, I&D BILATERAL ARM ABSCESSES; Surgeon: Jose Lockwood MD; Location: OR 5[facility]; Service: Orthopedics; Laterality: Left; IN INJ DX/THER AGNT PARAVERT FACET JOINT, LUMBAR/SAC, 2ND LEVEL Right Procedure: RIGHT LUMBAR FACET LEVEL L4, L5 ALA INJECTIONS WITH C-ARM; Surgeon : Daron Romero MD; Location: OR [address] [place] [address]; Service: Pain; Laterality: Right; RETINAL DETACHMENT SURGERY Right 01/08/2019 01/08/19 (lensectomy, retinectomy, EL, PPV, SO and MAGEN of Vancomycin ROTATOR CUFF REPAIR right Past Medical History: Diagnosis Date Bipolar 1 disorder GERD (gastroesophageal reflux disease) Herniated disc Hiatal hernia Hypertension Polysubstance (including opioids) dependence, daily use 11/09/2018 Pulmonary embolism 11/2018 Retinal detachment Vision abnormalities No family history on file. Social History Socioeconomic History Marital status: Legally [...] file Gets together: Not on file Attends spiritism service: Not on file Active member of [...] Linear) Right Left Dist sc HM 20/20 -1 Tonometry (Tonopen, 9:38 AM) Right Left Pressure 19 15 Pupils Dark Shape React APD Right 5 Irregular tonic None Left 4 Minimal None Visual Qauino Left Right Full Restrictions Total superior temporal, inferior temporal, superior nasal, inferior nasal deficiencies Extraocular Movement Right Left Full Full Neuro/Psych Oriented x3: Yes Mood/Affect: Normal Dilation Both eyes: 1.0% Tropicamide/2.5% Phenylephrine @ 9:38 AM Slit Lamp and Fundus Exam External Exam Right Left External Normal Normal Slit Lamp Exam Right Left Lids/Lashes Normal Normal Conjunctiva/Sclera 1+ injection, zachary White and Quiet Cornea DM folds Clear, inf spk Anterior Chamber tr-1+ cell Deep and Quiet Iris Inferior large PI w/ scant heme along edges, open Flat, Round Lens Aphakic 2+ NS Vitreous 8--90SiO fill, debris settled inf, vitreous strands in mid-vitreous Fundus Exam Right Left Disc sharp Sharp and [place] C/D Ratio 0.2 0.4 Macula flat, Normal Vessels Vascular attenuation Normal Periphery 360 retinectomy,, grossly flat. IT faint elevation at area of focal RR? Minimal heme along edges of retinectomy Flat x 4 Quadrants, No Holes, Tears , or Detachments We administered tropicamide, phenylephrine, and proparacaine. The following tests were performed today and reviewed with the patient (for the professional interpretation refer to the Oph Proc tab in chart review): OCT RETINA Right Eye Quality was good. Clinical Findings: Signal Strength >6. Intraretinal Fluid: Yes. Subretinal Fluid: No . Foveal depression: Blunted . Left Eye Quality was good. Clinical Findings: Signal Strength >6. Intraretinal Fluid: No . Subretinal Fluid: No . Foveal depression: Intact. General Details Comparative Data: Stable compared to prior. Given above study findings we will continue current management in coordination with the most recent as well as future examinations, and input from the patient. Notes Diffuse thickening and fibrosis of retina OD DX/Plan: Art Haque is a 54 y.o. male with: #Recurrent rhegmatogenous RD, OD Repaired(Robert/Keri)with MAGEN of vancomycin, ceftazadime, and voriconazole OU - 11/23/18 New funnelRDnoted 01/01/19 Repair OD 01/08/19 ([place]la/[place]) w/ lensectomy, retinectomy, EL, PPV, SO and MAGEN of vancomycin History of non compliance with drops, missing appointments including surgery, cancellation of surgery due to positive cocaine tests Repair 06/11/19 (Oellalcides/Gearldonda)PPV/MV/EL/Sup 180 retinectomy/RD repair/ oil (5000) placement. - Dense membranes encountered intraop w/ choroidal hemorrhage at 3 O Clock - Retina attached centrally, suspicious area IT - Off maxitrol, ocuflox, and atropine Plan: Decrease PF 4x/day OD Continue TAVARES gtts QID Avoid heavy activity/heavy lifting until next visit Written instruction for post op care and eye drops given Patient to call with any change, concern, or new ophthalmic or eye related issues. # Monocular precautions Polycarbonate glasses mrx given previously Patient should follow in retina clinic for [...] verbally and/or hand-out: N /A Seen with JOSE EDUARDO Espinoza S Patient to call with any change, concern, or new ophthalmic or eye related issues. F/U: Return in about 4 weeks (around 08/08/2019) for Retina, DFE. Dilate yes Noe House M.D. Resident's history reviewed, patient interviewed and examined. I agree. Assessment and plan reviewed with resident. I, Jose Eduardo Macedo MD, agree with the diagnosis and treatment plan as documented by the resident. Jose Eduardo Macedo MD documented in this encounter Plan of Treatment Date Type Specialty Care Team Description 08/08/2019 Office Visit Ophthalmology Name Type Priority Associated Diagnoses Date/Time OCT RETINA Ophth Imaging Routine Aftercare following surgery 07/11/2019 9: 48 AM EST of a sense organ Health Maintenance Due Date Last Done Comments [...] PCV13) Hepatitis C Screening (B. Completed 04/02/2013 [id number]) Hepatitis A Vaccines Aged Out 08/20/2018 No [...] Rate Site phenylephrine (MYDFRIN) 2.5 % Given 07/11/2019 9:39 AM EST 1 drop ophthalmic solution 1 drop 1 drop, Both Eyes, Once, Alejandra 07/11/19 at 0945, For 1 dose proparacaine (ALCAINE) 0.5 % ophthalmic Given 07/11/2019 9:39 AM EST 1 drop solution 1 drop 1 drop, Both Eyes, Once, Alejandra 320 at 0945, For 1 dose tropicamide (MYDRIACYL) 1 % ophthalmic Given 07/11/2019 9:39 AM EST 1 drop solution 1 drop 1 drop, Both Eyes, Once, Alejandra 07/11/19 at 0945, For 1 dose documented in this encounter Additional Health Concerns Infection Noted Time Resolved Time MRSA (Methicillin Resistant Staphylococcus 11/10/2018 7:35 AM EDT aureus) documented as of this encounter
--- OUTSIDE RECORDS SUMMARY | 2019-07-14 20:34 | XMS REPORT | Summary of Care ---
:1965 Author Organization [facility] Address [address] [place] [address] Care Team Providers Name Role Phone Malorie Trujillo MD Primary Care Provider Reason for Visit Reason Comments Post-op follow-up Encounter Details Date Type Department Care Team Description 06/12/2019 Office Visit [facility] for June Costa, Right retinal detachment (Primary Dx); Vision Care Postop check [address] [facility] [address] [place] [id number] [phone] Allergies No Known Allergiesdocumented as of this encounter (statuses as of 06/14/2019) Medications Medication Sig Dispensed Refills Start Date [...] on 06/12/2019 9:25 AM Ofloxacin 0.3 % Place 1 drop 5 mL 0 06/12/2019 06/22/2019 Active Ophthalmic Solution into the right (OCUFLOX) eye Four times daily for [address] 1 drop 10 mL 1 04/11/2019 06/12/2019 Discontinued 1 % Ophthalmic into both eyes (Reorder) Suspension (PRED Four times FORTE) daily Shake bottle Hospital, Clinic, or Ordered Dose Route Frequency Start Date End Date Status Other Facility Administered Medication proparacaine (ALCAINE) 1 drop Both Eyes Once 06/12/2019 06/12/2019 Ended 0.5 % ophthalmic solution 1 drop documented as of this encounter (statuses as of 06/14/2019) Active Problems Problem Noted Date Right retinal [...] as of this encounter (statuses as of 06/14/2019) Resolved Problems Problem Noted Date Resolved Date Skin bulla 11/12/2018 12/04/2018 Overview: Right 3rd finger Pressure injury of coccygeal region, unstageable 11/09/2018 12/18/2018 documented as of this encounter (statuses as of 06/14/2019) Social History Tobacco Use Types Packs/Day Years [...] filedocumented in this encounter Patient Instructions Patient InstructionsWJune henson MD - 06/12/2019 8:15 AM ESTPlease follow the physician's instructions as communicated during the office visit. Medications should be taken/given as prescribed or recommended by the physician. Please keep the follow-up appointment as recommended by the physician and return sooner if any changes, questions, or concerns arise. documented in this encounter Progress Notes June Costa MD - 06/12/2019 8:15 AM EST Chief Complaint Patient presents with Post-op follow-up HPI VGEN 1 day PO PPV OD Hx: Recurrent rhegmatogenous RD, OD Pt states slept ok last night. Denies pain. Pt would like to know if we have the drops here that he is suppose to use. Last edited by Alex Mercer on 06/12/2019 9:26 AM. (History) History: Patient's medications, allergies, past medical, surgical, social, and family histories werereviewed and updated as appropriate. Past Surgical History: Procedure Laterality Date HEMORRHOID SURGERY NONE VT DEBRIDEMENT, SKIN, SUB-Q TISSUE,MUSCLE,BONE,=<20 SQ CM Bilateral 11/10/2018 Procedure: 1. Fasciotomy with debridement of left thigh 2. I & D of fluid collection per Dr. Page; Surgeon: Jermain Page MD; Location: [address]; Service : Orthopedics; Laterality: Bilateral; VT DEBRIDEMENT, SKIN, SUB-Q TISSUE,MUSCLE,BONE,=<20 SQ CM Left 2018 Procedure: DEBRIDEMENT; SKIN, SUBQ TISSUE, MUSCLE, & BONE OF BILATERAL THIGHS, I&D BILATERAL ARM ABSCESSES; Surgeon: Jose Lockwood MD; Location: OR 5E; Service: Orthopedics; Laterality: Left; VT INJ DX/THER AGNT PARAVERT FACET JOINT, LUMBAR/SAC, 2ND LEVEL Right Procedure: RIGHT LUMBAR FACET LEVEL L4, L5 ALA INJECTIONS WITH C-ARM; Surgeon : Daron Romero MD; [facility]; Service: Pain; Laterality: Right; RETINAL DETACHMENT SURGERY [...] file Gets together: Not on file Attends mandaeism service: Not on file Active member of [...] - Linear) Right Left Dist sc HM Tonometry (Tonopen, 9:30 AM) Right Left Pressure 20 15 Pupils Dark Right 6 Left Visual Aquino Left Right Restrictions Total superior temporal, inferior temporal, superior nasal, inferior nasal deficiencies Extraocular Movement Pt states pain when looking side to side Neuro/Psych Oriented x3: Yes Mood/Affect: Normal Slit Lamp and Fundus Exam External Exam Right Left External Normal Normal Slit Lamp Exam Right Left Lids/Lashes edema Normal Conjunctiva/Sclera 2+ injection, zachary White and Quiet Cornea d folds Clear, inf spk Anterior Chamber proteinaceous material Deep and Quiet Iris Inferior large PI Flat, Round Lens Aphakic 2+ NS Vitreous SiO fill, hazy view 2+ haze, debris settled inf, vitreous strands in mid-vitreous Fundus Exam Right Left Disc hazy view C/D Ratio 0.2 Macula poor view. PVR and fibrosis in multiple areas of posterior pole Vessels poor view Periphery Poor view We administered proparacaine. The following tests were performed today [...] of surgery due to positive cocaine tests Patient came late for his POD1 appointment 06/12/19. He says his registered nurse hh case manager told him that his appointment was at 9 or 9:30 although his appointment time was 8: 15. By the time the patient was ready to beseen, the retina attending was already in surgery and could not be back to see him until noon. The patient said he could not wake for that long and insisted on coming back the next day. He left without being seen by an attending physician. VA stable, IOP acceptable View to fundus was poor, unable to tell if all of retina was attached. There is stable area of scarring seen Plan: Patching at night PF 6x/day OD Ocuflox QID OD Atropine BID OD maxitrol lexy TID OD Follow up retina clinic # Monocular precautions Polycarbonate glasses mrx given [...] issues, either verbally and/or hand-out: N /A Attending of the month: GISELLE Carlton Patient to call with any change, concern, or new ophthalmic or eye related issues. F/U: Return in 1 day (on 06/13/2019) for retina clinic. Dilate yes June Costa M.D. Art Haque was seen by a resident physician. Chart reviewed, plan seems appropriate. Giselle Angeles MD documented in this encounter Plan of [...] PCV13) Hepatitis C Screening (B. Completed 04/02/2013 [id number]) Hepatitis A Vaccines Aged Out 08/20/2018 No [...] retinal detachment - Primary Unspecified retinal detachment Postop check Follow-up examination, following unspecified surgery documented in this encounter Administered Medications Medication Order MAR Action Action Date Dose Rate Site proparacaine (ALCAINE) 0.5 % Given 06/12/2019 9:30 AM EST 1 drop ophthalmic solution 1 drop 1 drop, Both Eyes, Once, 06/12/19 at 0930, For 1 dose documented in this encounter Additional Health Concerns Infection Noted Time Resolved Time MRSA (Methicillin Resistant Staphylococcus 11/10/2018 7:35 AM EDT aureus) documented as of this encounter
[2019-07-14] MEDS ORDERED: HYDROcodone/ACETAMIN 5-325 MG* 1 TAB PO ONE (20:55)
[2019-07-14] MEDS ORDERED: Clindamycin CAP* 150 MG PO ONE (20:56)
[2019-07-14 21:23] VITALS: BP 131/78
--- NOTE | 2019-07-14 21:43 | UC ---
Hand/Wrist HPI - History Of Current Complaint Chief Complaint: UCBackPain Stated Complaint: LEFT ARM & HAND SWELLING/PAIN Time Seen by Provider: 07/14/19 20:40 Pain Intensity: 9 - Allergies/Home Medications Allergies/Adverse Reactions: Allergies Allergy/AdvReac Type Severity Reaction Status Date / Time No Known Allergies Allergy Verified 07/14/19 21:23 Home Medications: Home Medications Lisinopril TAB* [Prinivil TAB*] 20 mg PO DAILY 10/24/18 [History Confirmed 07/13] Oxycodone TAB(NF) [Oxycodone HCl 10 MG] 10 mg PO Q8H PRN #6 tab MDD 3 10/24/18 [ Rx Confirmed 07/14/19] DOXYcycline 100MG CAP(*) 100 mg PO BID 01/23/19 [History Confirmed 01/23/19] Hydrochlorothiazide 25 mg PO DAILY 01/23/19 [History Confirmed 07/14/19] Ibuprofen 400 mg PO Q8HR PRN 01/23/19 [History Confirmed 07/14/19] Clindamycin Cap(NF) [Clindamycin Cap 300 mg Cap(NF)] 300 mg PO Q6H #40 cap 07/13 [Rx] Oxycodone TAB(NF) [Oxycodone HCl 10 MG] 10 mg PO TID PRN #12 tab MDD 3 07/14/19 [Rx] PMH/Surg Hx/FS Hx/Imm Hx Other History Of: Negative For: Anticoagulant Therapy - Surgical History Surgical History: Yes Surgery Procedure, Year, and Place: HERNIA REPAIR. RT SHOULDER SURGERY - Family History Known Family History: Positive: Hypertension, Non-Contributory - Social History Alcohol Use: None Substance Use Type: None Substance Use Comment - Amount & Last Used: oxycodone Smoking Status (MU): Light Every Day Tobacco Smoker Type: Cigarettes Length of Time of Smoking/Using Tobacco: 20 YRS Have You Smoked in the Last Year: Yes Household Exposure Type: Cigarettes - Immunization History Most Recent Influenza Vaccination: none Most Recent Tetanus Shot: [facility] Most Recent Pneumonia Vaccination: NONE Physical Exam Vital Signs: Initial Vital Signs Temp 99.9 F 07/14/19 21:16 Pulse 97 07/14/19 21:16 Resp 14 07/14/19 21:16 BP 131/78 07/14/19 21:16 Pulse Ox 97 07/14/19 21:16 Discharge ED - Discharge Plan Condition: Stable Disposition: HOME Prescriptions: Clindamycin Cap(NF) [Clindamycin Cap 300 mg Cap(NF)] 300 mg PO Q6H #40 cap Oxycodone TAB(NF) [Oxycodone HCl 10 MG] 10 mg PO TID PRN #12 tab MDD 3 PRN Reason: Pain - Mild Patient Education Materials: Cellulitis (ED), Warm Compress or Soak (ED), Opioid Use Disorder (ED) Referrals: Malorie Trujillo MD [Primary Care Provider] - 3 Days Additional Instructions: keep arm elevated------warm compresses 5-6 times a day--------assure your friends know where your narcan is and how to use it!!!!! - Billing Disposition and Condition Condition: STABLE Disposition: Home
--- NOTE | 2019-07-15 09:49 | UC ---
- Progress Note Progress Note: patient requested scripts sent to [facility]. [facility] called , all scripts including oxycodone were not filled and canceled. -Maribel Langley PAC Course/Dx - Diagnoses Provider Diagnoses: Pain Discharge ED - Sign-Out/Discharge Documenting (check all that apply): Patient Departure All imaging exams completed and their final reports reviewed: No Studies - Discharge Plan Condition: Stable Disposition: HOME Prescriptions: Clindamycin Cap(NF) [Clindamycin Cap 300 mg Cap(NF)] 300 mg PO Q6H #40 cap Oxycodone TAB(NF) [Oxycodone HCl 10 MG] 10 mg PO TID PRN #12 tab MDD 3 PRN Reason: Pain - Mild Patient Education Materials: Cellulitis (ED), Warm Compress or Soak (ED), Opioid Use Disorder (ED) Referrals: Malorie Trujillo MD [Primary Care Provider] - 3 Days Additional Instructions: keep arm elevated------warm compresses 5-6 times a day--------assure your friends know where your narcan is and how to use it!!!!! - Billing Disposition and Condition Condition: STABLE Disposition: Home
== END 2019-07-14 21:40 | disposition home or self-care (01) ==
LOC: UCEAST 20:24
DX: M79.605 Pain in left leg (principal); F17.210 Nicotine dependence, cigarettes, uncomplicated
CPT/HCPCS: 99213; A9270-GY; G0463

== ENCOUNTER 2021-08-18 02:32 | Inpatient (IN) ==
[2021-08-18] MEDS ORDERED: Lactated Ringers 1000 ml BAG IV.FLUID IV ONE (03:36)
[2021-08-18 06:36] LABS: Urine Appearance Clear; Urine Bilirubin Negative (Negative); Urine Blood 1+ (Negative); Urine Color Yellow; Urine Glucose 1+(50 mg/dL) (Negative); Urine Ketones Negative (Negative); Urine Nitrite Negative (Negative); Urine Protein 1+(30 mg/dL) (Negative); Urine Specific Gravity 1.015 (1.002-1.030); Urine Urobilinogen Positive (Negative)
[2021-08-18 06:57] LABS: Albumin 3.1 g/dL (3.2-5.2); CO2 Carbon Dioxide 23 mmol/L (22-32); Chloride 105 mmol/L (101-111); Sodium 135 mmol/L (135-145)
[2021-08-18 07:03] LABS: ALT 8 U/L (7-52); Albumin/Globulin Ratio 1.2 (1-3); Alkaline Phosphatase 73 U/L (35-149); Blood Urea Nitrogen 12 mg/dL (6-24); C Reactive Protein 213.24 mg/L (<8.01); Globulin 2.6 g/dL (2-4); Glucose 115 mg/dL (70-100); Total Protein 5.7 g/dL (6.4-8.9); eGFR CKD-EPI 77.9 (>60)
[2021-08-18 07:08] LABS: Hematocrit 33 % (42-52); Hemoglobin 11.4 g/dL (14.0-18.0); Mean Corpuscular HGB Conc 35 g/dL (31-36); Mean Corpuscular Hemoglobin 28 pg (27-31); Mean Corpuscular Volume 80 fL (80-94); Red Blood Count 4.13 10^6 /uL (4.18-5.48); Red Cell Distribution Width 14 % (10-15); White Blood Count 7.1 10^3/uL (3.5-10.8)
[2021-08-18 07:29] LABS: Activated Partial Thrombo Time 24.7 seconds (26.0-38.0); INR 1.6 (0.86-1.15)
[2021-08-18 07:39] LABS: High Sens Troponin Baseline 34 pg/mL (<20)
[2021-08-18 07:42] LABS: Anion Gap 7 mmol/L (2-11)
[2021-08-18 08:06] LABS: Urine Bacteria Absent (Absent); Urine Red Blood Cell 2+(6-10/hpf) (Absent); Urine White Blood Cell Trace(0-5/hpf) (Absent)
[2021-08-18] MEDS ORDERED: cefTRIAXone 1 gm/50 mL D5W 1 GM/50 ML BAG IV ONE (08:21)
[2021-08-18] MEDS ORDERED: Azithromycin 500 mg/250 ml NS 500 MG/250 ML BAG IVPB ONE (08:21)
[2021-08-18] MEDS ORDERED: cefTRIAXone 2 GM ADDV.VIAL 2 GM in NS 0.9% 100 ml BAG 100 ML IVPB ONE (08:32)
[2021-08-18 08:45] LABS: Potassium Redraw 2.9 mmol/L (3.5-5.0)
[2021-08-18 08:53] LABS: RBC Morphology Normal (Normal)
[2021-08-18 08:54] LABS: ABS Lymphocytes 0.5 10^3/ul (1.0-4.8); ABS Monocytes 0.7 10^3/ul (0-0.8); ABS Neutrophils 5.9 10^3/ul (1.5-7.7); Eosinophil % 0.6 %; Lymphocyte % 6.3 %; Platelet Count Platelets clumped. 10^3/uL (150-450)
[2021-08-18] MEDS ORDERED: Vancomycin 1,000 MG in NS 0.9% 250 ml 250 ML IVPB ONE (09:00)
[2021-08-18] MEDS ORDERED: Ondansetron 4 mg VIAL 2 MG/ML 2 ml VIAL IV PRN (10:09)
[2021-08-18] MEDS ORDERED: Iohexol 350 (CONTRAST) 500 ML MDV IV ONE (10:38)
[2021-08-18] MEDS ORDERED: OXYCODONE 15 MG PO PRN (10:53)
[2021-08-18] MEDS ORDERED: Vancomycin per Pharmacy 1 EA NOTE FOLLOW UP SCH (11:00)
[2021-08-18] MEDS ORDERED: Potassium Chloride LIQUID 20 MEQ/15 ML LIQUID PO ONE (11:29)
[2021-08-18] MEDS: Heparin 5000 UNITS/ML 1 mL VIAL SUBCUT SCH ×2 (12:53→21:44)
[2021-08-18] MEDS ORDERED: OXYCODONE 15 MG PO SCH (13:00)
[2021-08-18] MEDS ORDERED: Cefepime 1 GM in Dextrose 1 GM/50 ML BAG IV SCH (14:00)
[2021-08-18] MEDS: Vancomycin 750 MG in NS 0.9% 250 ML IVPB SCH (18:40)
[2021-08-18] MEDS: Acetaminophen IV 1 GM/100ML 100 ML IV SCH (19:00)
[2021-08-18] MEDS ORDERED: Lactated Ringers 1000 ml BAG 1,000 ML IV ONE (19:35)
[2021-08-18] MEDS ORDERED: Naloxone 0.4 mg VIAL 0.4 mg/ml 1 ml VIAL IV PUSH ONE (20:17)
[2021-08-18 20:20] LABS: PCO2 Arterial 33 mmHg (35-45); PO2 Arterial 64 mmHg (80-100)
[2021-08-18] MEDS ORDERED: Naloxone 0.4 mg VIAL 0.4 mg/ml 1 ml VIAL ONE (20:20)
[2021-08-18 20:47] LABS: ABS Lymphocytes 0.5 10^3/ul (1.0-4.8); ABS Monocytes 0.8 10^3/ul (0-0.8); ABS Neutrophils 6.9 10^3/ul (1.5-7.7); Eosinophil % 0.1 %; Hematocrit 35 % (42-52); Lymphocyte % 6.2 %; Mean Corpuscular HGB Conc 34 g/dL (31-36); Mean Corpuscular Hemoglobin 27 pg (27-31); Mean Corpuscular Volume 79 fL (80-94); Mean Platelet Volume 8.1 fL (7.4-10.4); Platelet Count 76 10^3/uL (150-450); Red Blood Count 4.43 10^6 /uL (4.18-5.48); Red Cell Distribution Width 15 % (10-15); White Blood Count 8.2 10^3/uL (3.5-10.8)
[2021-08-18 21:03] LABS: Albumin 2.9 g/dL (3.2-5.2); Albumin/Globulin Ratio 1.1 (1-3); Calcium 7.9 mg/dL (8.6-10.3); Globulin 2.6 g/dL (2-4); Potassium 3.4 mmol/L (3.5-5.0); Total Bilirubin 0.9 mg/dL (0.2-1.0); Total Protein 5.5 g/dL (6.4-8.9); eGFR CKD-EPI 88.3 (>60)
[2021-08-18] MEDS ORDERED: KCL 10 MEQ/50 ML IVPREMIX 10 MEQ/50 ML BAG ONE (21:28)
[2021-08-18] MEDS: KCL 10 MEQ/50 ML IVPREMIX 10 MEQ/50 ML BAG IV SCH ×2 (21:44→22:51)
[2021-08-19] MEDS: Acetaminophen IV 1 GM/100ML 100 ML IV SCH ×3 (00:31→13:38)
[2021-08-19] MEDS: KCL 10 MEQ/50 ML IVPREMIX 10 MEQ/50 ML BAG IV SCH (01:37)
[2021-08-19 02:30] LABS: Urine Benzodiazepine Screen Presumptive Positive (None Detect); Urine Cannabinoids Screen None Detected (None Detect); Urine Opiates Screen None Detected (None Detect)
[2021-08-19] MEDS: Vancomycin 750 MG in NS 0.9% 250 ML IVPB SCH (03:35)
[2021-08-19] MEDS: Heparin 5000 UNITS/ML 1 mL VIAL SUBCUT SCH ×2 (05:48→13:38)
[2021-08-19 05:51] LABS: ABS Lymphocytes 0.7 10^3/ul (1.0-4.8); ABS Monocytes 1.1 10^3/ul (0-0.8); ABS Neutrophils 7.9 10^3/ul (1.5-7.7); Eosinophil % 0.1 %; Hematocrit 37 % (42-52); Hemoglobin 12.5 g/dL (14.0-18.0); Lymphocyte % 7.1 %; Mean Corpuscular HGB Conc 34 g/dL (31-36); Mean Corpuscular Hemoglobin 27 pg (27-31); Mean Corpuscular Volume 80 fL (80-94); Mean Platelet Volume 8.2 fL (7.4-10.4); Platelet Count 77 10^3/uL (150-450); Red Blood Count 4.59 10^6 /uL (4.18-5.48); Red Cell Distribution Width 15 % (10-15); White Blood Count 9.7 10^3/uL (3.5-10.8)
[2021-08-19] MEDS ORDERED: Buffered Lidocaine 1% SYRIN 1 ml INTRADERM ONE (06:00)
[2021-08-19] MEDS ORDERED: Lactated Ringers 1000 ml BAG 1,000 ML IV SCH (06:00)
[2021-08-19 06:18] LABS: Calcium 8.1 mg/dL (8.6-10.3); Magnesium 2.1 mg/dL (1.9-2.7); Potassium 3.6 mmol/L (3.5-5.0); eGFR CKD-EPI 91.6 (>60)
[2021-08-19] MEDS ORDERED: Lidocaine 2% PF 5 ML VIAL ONE (08:40)
[2021-08-19] MEDS ORDERED: Ondansetron 4 mg VIAL 2 MG/ML 2 ml VIAL ONE (08:40)
[2021-08-19] MEDS ORDERED: Rocuronium 50 mg VIAL 10 mg/ml 5 ml VIAL (50 mg) ONE (08:40)
[2021-08-19] MEDS ORDERED: Propofol 10 MG/ML 20 ML BTL ONE (08:40)
[2021-08-19] MEDS ORDERED: Dexamethasone IV 4 MG/ML VIAL 1 ml VIAL ONE (08:40)
[2021-08-19] MEDS ORDERED: Midazolam 2 mg/2 ml VIAL 1 mg/ml 2 ml VIAL (2 mg) ONE (08:41)
[2021-08-19] MEDS ORDERED: fentaNYL 100 mcg/2 ml 50 MCG/ML VIAL ONE (08:41)
[2021-08-19] MEDS ORDERED: Phenylephrine 40 mcg/mL 10mL (400mcg) SYRINGE ONE (08:49)
[2021-08-19] MEDS ORDERED: Vancomycin Trough Check NOTE FOLLOW UP ONE (10:00)
[2021-08-19 17:08] VITALS: BP 139/83
[2021-08-19] MEDS ORDERED: Vancomycin 1000 MG in NS 0.9% 250 ML IVPB SCH (18:00)
[2021-08-21] MEDS ORDERED: Vancomycin Trough Check NOTE FOLLOW UP ONE (09:30)
== END 2021-08-19 17:52 | disposition left against medical advice (07) | DRG 720 ==
LOC: ED 02:32 → EDHOLD 10:09 → SUATTDRO 10:09 → EDHOLD 12:03 → MEDTELE 12:43
PROVIDERS: ADMIT Hospitalist; ATTEND Hospitalist
PROC: O.CATEE (2021-08-19 10:15)

== ENCOUNTER 2021-08-24 17:06 | Inpatient (IN) ==
[2021-08-24] MEDS ORDERED: Lactated Ringers 1000 ml BAG IV.FLUID IV ONE (17:36)
[2021-08-24] MEDS ORDERED: Piperacillin/Tazobac ADVAN 3.375 GM in NS 0.9% 100 ml BAG 100 ML IV ONE (17:36)
[2021-08-24] MEDS ORDERED: Vancomycin 1,000 MG in NS 0.9% 250 ml 250 ML IVPB SCH (18:00)
[2021-08-24 19:12] LABS: Urine Appearance Cloudy; Urine Bilirubin Negative (Negative); Urine Blood Negative (Negative); Urine Color Yellow; Urine Glucose Negative (Negative); Urine Ketones Negative (Negative); Urine Nitrite Negative (Negative); Urine Protein 1+(30 mg/dL) (Negative); Urine Specific Gravity 1.014 (1.002-1.030); Urine Urobilinogen Positive (Negative)
[2021-08-24] MEDS ORDERED: Vancomycin 1,000 MG - ED ONCE IVPB ONE (19:16)
[2021-08-24 19:20] LABS: Urine Bacteria Absent (Absent); Urine Red Blood Cell Trace(0-2/hpf) (Absent); Urine Squamous Epithelial Cell Present (Absent); Urine White Blood Cell 1+(6-10/hpf) (Absent)
[2021-08-24 20:50] LABS: Albumin 2.6 g/dL (3.2-5.2); CO2 Carbon Dioxide 22 mmol/L (22-32); Calcium 7.4 mg/dL (8.6-10.3); Chloride 104 mmol/L (101-111); Sodium 135 mmol/L (135-145)
[2021-08-24 20:56] LABS: ALT 8 U/L (7-52); Albumin/Globulin Ratio 0.7 (1-3); Alkaline Phosphatase 70 U/L (35-149); Blood Urea Nitrogen 12 mg/dL (6-24); C Reactive Protein 180.02 mg/L (<8.01); Globulin 3.9 g/dL (2-4); Glucose 95 mg/dL (70-100); Total Protein 6.5 g/dL (6.4-8.9); eGFR CKD-EPI 77.1 (>60)
[2021-08-24 20:58] LABS: Anion Gap 9 mmol/L (2-11)
[2021-08-24 21:32] LABS: ABS Lymphocytes 0.7 10^3/ul (1.0-4.8); ABS Monocytes 0.4 10^3/ul (0-0.8); ABS Neutrophils 6.5 10^3/ul (1.5-7.7); Eosinophil % 0.2 %; Hematocrit 26 % (42-52); Lymphocyte % 9.2 %; Mean Corpuscular HGB Conc 34 g/dL (31-36); Mean Corpuscular Hemoglobin 27 pg (27-31); Mean Corpuscular Volume 78 fL (80-94); Mean Platelet Volume 7.9 fL (7.4-10.4); Nucleated Red Blood Cells % 0.1; Platelet Count 118 10^3/uL (150-450); Red Blood Count 3.35 10^6 /uL (4.18-5.48); Red Cell Distribution Width 15 % (10-15); White Blood Count 7.6 10^3/uL (3.5-10.8)
[2021-08-24 21:39] LABS: Activated Partial Thrombo Time 27.5 seconds (26.0-38.0); INR 1.58 (0.86-1.15)
[2021-08-24 22:18] LABS: Potassium Redraw 2.9 mmol/L (3.5-5.0)
[2021-08-24] MEDS ORDERED: KCL 20 MEQ/100 ML IVPREMIX 20 MEQ/100 ML BAG IV ONE (22:34)
[2021-08-24 23:24] LABS: High Sensitivity Troponin 1 Hr 24 pg/mL (<20)
[2021-08-24] MEDS ORDERED: Piperacillin/Tazobac ADVAN 3.375 GM in NS 0.9% 100 ml BAG 100 ML IV SCH (23:45)
[2021-08-24] MEDS ORDERED: Vancomycin 1,500 MG in NS 0.9% 250 ml 250 ML IVPB SCH (23:45)
[2021-08-24] MEDS ORDERED: Vancomycin per Pharmacy 1 EA NOTE FOLLOW UP PRN (23:48)
[2021-08-24] MEDS ORDERED: Zosyn per Pharmacy NOTE FOLLOW UP PRN (23:48)
[2021-08-25 00:42] LABS: Urine Benzodiazepine Screen Presumptive Positive (None Detect); Urine Cannabinoids Screen None Detected (None Detect); Urine Opiates Screen None Detected (None Detect)
[2021-08-25] MEDS ORDERED: Acetaminophen IV 1 GM/100ML 100 ML IV ONE (00:50)
[2021-08-25] MEDS: Lactated Ringers 1000 ml BAG 1,000 ML IV SCH (02:14)
[2021-08-25 06:17] LABS: ABS Lymphocytes 0.9 10^3/ul (1.0-4.8); ABS Monocytes 0.7 10^3/ul (0-0.8); ABS Neutrophils 6.6 10^3/ul (1.5-7.7); Eosinophil % 0.2 %; Hematocrit 25 % (42-52); Hemoglobin 8.6 g/dL (14.0-18.0); Lymphocyte % 10.9 %; Mean Corpuscular HGB Conc 35 g/dL (31-36); Mean Corpuscular Hemoglobin 27 pg (27-31); Mean Corpuscular Volume 78 fL (80-94); Mean Platelet Volume 7.7 fL (7.4-10.4); Platelet Count 117 10^3/uL (150-450); Red Cell Distribution Width 15 % (10-15); White Blood Count 8.2 10^3/uL (3.5-10.8)
[2021-08-25] MEDS ORDERED: Zosyn 3.375 GM IV - ED ONCE IV ONE ×2 (06:30)
[2021-08-25 06:55] LABS: ALT 6 U/L (7-52); AST 14 U/L (13-39); Albumin/Globulin Ratio 0.6 (1-3); Alkaline Phosphatase 67 U/L (35-149); Anion Gap 6 mmol/L (2-11); Blood Urea Nitrogen 11 mg/dL (6-24); CO2 Carbon Dioxide 26 mmol/L (22-32); Calcium 6.9 mg/dL (8.6-10.3); Chloride 106 mmol/L (101-111); Globulin 3.5 g/dL (2-4); Glucose 114 mg/dL (70-100); Phosphorus 3.3 mg/dL (2.5-5.0); Potassium 2.9 mmol/L (3.5-5.0); Sodium 138 mmol/L (135-145); Total Protein 5.5 g/dL (6.4-8.9); eGFR CKD-EPI 83.3 (>60)
[2021-08-25] MEDS: KCL 20 MEQ/100 ML IVPREMIX 20 MEQ/100 ML BAG IV SCH ×3 (08:56→17:55)
[2021-08-25] MEDS ORDERED: OXYCODONE 15 MG PO SCH (09:00)
[2021-08-25] MEDS ORDERED: Vancomycin 1,250 MG in NS 0.9% 250 ml 250 ML IVPB ONE (10:00)
[2021-08-25] MEDS: Enoxaparin 40 MG/0.4 ML SYR SUBCUT SCH ×2 (13:46→21:06)
[2021-08-25] MEDS ORDERED: ZOSYN 3.375 GM Q8H per EXTENDED INFUSION IV SCH (14:30)
[2021-08-25] MEDS ORDERED: Gadoteridol (CONTRAST) 279.3 MG/ML 10 ML IV ONE (15:14)
[2021-08-25] MEDS ORDERED: Potassium Chlor 20 meq TAB.ER PO ONE ×2 (16:49→20:00)
[2021-08-25 18:13] LABS: Total Iron Binding Capacity 167 mcg/dL (250-450); Transferrin 119 mg/dL (203-362)
[2021-08-25 18:33] LABS: Ferritin 485.1 ng/mL (24-336)
[2021-08-25 18:35] LABS: % Iron Saturation 12 % (15-55); Iron < 20 ug/dL (50-212); Unsaturated Iron Binding 147 ug/dL
[2021-08-25] MEDS: Vancomycin 1,250 MG in NS 0.9% 250 ml 250 ML IVPB SCH (21:06)
[2021-08-26 05:13] LABS: Albumin 2.1 g/dL (3.2-5.2); Albumin/Globulin Ratio 0.6 (1-3); Calcium 7.3 mg/dL (8.6-10.3); Globulin 3.8 g/dL (2-4); Potassium 3.6 mmol/L (3.5-5.0); Total Bilirubin 0.9 mg/dL (0.2-1.0); Total Protein 5.9 g/dL (6.4-8.9); eGFR CKD-EPI 87.3 (>60)
[2021-08-26] MEDS ORDERED: Lorazepam PYXIS KEY PRN (05:32)
[2021-08-26] MEDS ORDERED: Lorazepam PYXIS KEY ONE (05:33)
[2021-08-26] MEDS ORDERED: LORazepam 2 mg VIAL 1 ml ONE (05:34)
[2021-08-26] MEDS: LORazepam 2 mg VIAL 1 ml IV PUSH ONE ×2 (05:40)
[2021-08-26] MEDS: Lactated Ringers 1000 ml BAG 1,000 ML IV SCH (05:43)
[2021-08-26] MEDS ORDERED: Vancomycin Trough Check NOTE FOLLOW UP ONE (08:30)
[2021-08-26] MEDS: Vancomycin 1,250 MG in NS 0.9% 250 ml 250 ML IVPB SCH ×2 (09:40→20:07)
[2021-08-26 14:29] LABS: Hematocrit 28 % (42-52); Hemoglobin 9.4 g/dL (14.0-18.0)
[2021-08-26] MEDS ORDERED: Potassium Chlor 20 meq TAB.ER PO ONE (17:23)
[2021-08-26] MEDS: Enoxaparin 40 MG/0.4 ML SYR SUBCUT SCH (20:08)
[2021-08-26] MEDS ORDERED: NS 0.9% 1000 ml BAG 1,000 ML IV SCH (23:24)
[2021-08-27] MEDS ORDERED: Acetaminophen IV 1 GM/100ML 100 ML IV ONE (04:30)
[2021-08-27] MEDS: Vancomycin 1,250 MG in NS 0.9% 250 ml 250 ML IVPB SCH (09:00)
[2021-08-27 11:56] VITALS: BP 141/88
[2021-08-29] MEDS ORDERED: Vancomycin Trough Check NOTE FOLLOW UP ONE (08:30)
== END 2021-08-27 12:55 | disposition left against medical advice (07) | DRG 720 ==
LOC: ED 17:06 → SUATTDRO 23:06 → EDHOLD 23:06 → MEDTELE 08-25 11:11
PROVIDERS: ADMIT Internal Medicine; ATTEND Internal Medicine

== ENCOUNTER 2021-10-18 13:15 | Inpatient (IN) ==
[2021-10-18 15:11] LABS: ABS Lymphocytes 0.8 10^3/ul (1.0-4.8); ABS Monocytes 0.6 10^3/ul (0-0.8); ABS Neutrophils 6.6 10^3/ul (1.5-7.7); Hematocrit 23 % (42-52); Lymphocyte % 9.4 %; Mean Corpuscular HGB Conc 31 g/dL (31-36); Mean Corpuscular Hemoglobin 25 pg (27-31); Mean Corpuscular Volume 81 fL (80-94); Mean Platelet Volume 7.6 fL (7.4-10.4); Platelet Count 201 10^3/uL (150-450); Red Blood Count 2.83 10^6 /uL (4.18-5.48); Red Cell Distribution Width 20 % (10-15)
[2021-10-18 15:22] LABS: INR 1.53 (0.86-1.15)
[2021-10-18 15:54] LABS: Albumin 2.8 g/dL (3.2-5.2); Calcium 7.7 mg/dL (8.6-10.3); Globulin 2.9 g/dL (2-4); Potassium 3.5 mmol/L (3.5-5.0); Total Bilirubin 0.3 mg/dL (0.2-1.0); Total Protein 5.7 g/dL (6.4-8.9); eGFR CKD-EPI 84.3 (>60)
[2021-10-18] MEDS ORDERED: Iohexol 350 (CONTRAST) 500 ML MDV IV ONE (15:55)
[2021-10-18] MEDS ORDERED: Heparin DRIP 25,000 UNITS BAG 25,000 UNITS/500 ML BAG IV SCH (17:00)
[2021-10-18] MEDS ORDERED: Heparin 5000 UNITS/ML 1 mL VIAL IV SCH ×2 (17:00)
[2021-10-18 17:17] LABS: High Sensitivity Troponin 1 Hr 5 pg/mL (<20)
[2021-10-18 17:18] LABS: HIV 4th Generation Nonreactive (Nonreactive)
[2021-10-18 17:44] LABS: ABS Monocytes 0.6 10^3/ul (0-0.8); ABS Neutrophils 5.9 10^3/ul (1.5-7.7); Eosinophil % 0.3 %; Hematocrit 22 % (42-52); Hemoglobin 6.7 g/dL (14.0-18.0); Lymphocyte % 13.5 %; Mean Corpuscular HGB Conc 30 g/dL (31-36); Mean Corpuscular Hemoglobin 25 pg (27-31); Mean Corpuscular Volume 82 fL (80-94); Platelet Count 178 10^3/uL (150-450); Red Blood Count 2.74 10^6 /uL (4.18-5.48); Red Cell Distribution Width 20 % (10-15); White Blood Count 7.6 10^3/uL (3.5-10.8)
[2021-10-18 18:43] LABS: eGFR CKD-EPI 87.3 (>60)
[2021-10-19 04:23] LABS: ABS Monocytes 0.6 10^3/ul (0-0.8); ABS Neutrophils 4.6 10^3/ul (1.5-7.7); Eosinophil % 0.6 %; Hematocrit 22 % (42-52); Hemoglobin 6.7 g/dL (14.0-18.0); Lymphocyte % 16.5 %; Mean Corpuscular HGB Conc 30 g/dL (31-36); Mean Corpuscular Hemoglobin 25 pg (27-31); Mean Corpuscular Volume 82 fL (80-94); Mean Platelet Volume 7.7 fL (7.4-10.4); Platelet Count 169 10^3/uL (150-450); Red Blood Count 2.72 10^6 /uL (4.18-5.48); Red Cell Distribution Width 20 % (10-15); White Blood Count 6.2 10^3/uL (3.5-10.8)
[2021-10-19 05:52] LABS: Chloride 100 mmol/L (101-111); Sodium 133 mmol/L (135-145)
[2021-10-19 06:05] LABS: Anion Gap 9 mmol/L (2-11); CO2 Carbon Dioxide 24 mmol/L (22-32); Calcium 7.5 mg/dL (8.6-10.3)
[2021-10-19 06:12] LABS: Blood Urea Nitrogen 11 mg/dL (6-24); Glucose 194 mg/dL (70-100); eGFR CKD-EPI 101.3 (>60)
[2021-10-19 09:28] LABS: Activated Partial Thrombo Time 34.2 seconds (26.0-38.0)
[2021-10-19 10:24] LABS: C Reactive Protein 151.42 mg/L (<8.01)
[2021-10-19 11:10] LABS: Fibrinogen 546.9 mg/dL (110.8-404.3)
[2021-10-19 11:20] LABS: Hepatitis C Antibody Reactive (Negative)
[2021-10-19] MEDS ORDERED: Lidocaine 1% MPF 5 ML VIAL ONE (12:21)
[2021-10-19] MEDS ORDERED: Iohexol 300 (CONTRAST) 10 ML SDV ONE (12:22)
[2021-10-19] MEDS ORDERED: Iohexol 350 (CONTRAST) 50 ML SDV IV ONE ×3 (12:22→13:29)
[2021-10-19] MEDS ORDERED: Heparin 2 UNITS/ML IVPREMIX 1,000 UNIT/500 ML BAG IV ONE ×3 (12:23→12:52)
[2021-10-19] MEDS ORDERED: Midazolam 5 mg/5 ml VIAL 1 mg/ml 5 ml VIAL (5 mg) ONE (12:53)
[2021-10-19] MEDS ORDERED: fentaNYL 100 mcg/2 ml 50 MCG/ML VIAL ONE (12:53)
[2021-10-19] MEDS ORDERED: Vancomycin per Pharmacy 1 EA NOTE FOLLOW UP SCH (13:00)
[2021-10-19] MEDS ORDERED: Vancomycin 1,250 MG in NS 0.9% 250 ml 250 ML IVPB ONE (14:00)
[2021-10-19] MEDS: Alteplase for catheter directed thrombolysis infusion ICU (0.02 mg/mL) SCH ×2 (14:43→21:16)
[2021-10-19] MEDS: NS 0.9% 1,000 ML IV SCH (15:00)
[2021-10-19] MEDS: Heparin 5000 UNITS/ML 1 mL VIAL SUBCUT SCH (21:01)
[2021-10-19 22:02] LABS: ABS Lymphocytes 1.2 10^3/ul (1.0-4.8); ABS Monocytes 0.8 10^3/ul (0-0.8); ABS Neutrophils 5.6 10^3/ul (1.5-7.7); Eosinophil % 0.4 %; Hematocrit 24 % (42-52); Hemoglobin 7.4 g/dL (14.0-18.0); Lymphocyte % 15.6 %; Mean Corpuscular HGB Conc 31 g/dL (31-36); Mean Corpuscular Hemoglobin 25 pg (27-31); Mean Corpuscular Volume 79 fL (80-94); Mean Platelet Volume 7.6 fL (7.4-10.4); Platelet Count 215 10^3/uL (150-450); Red Blood Count 3.03 10^6 /uL (4.18-5.48); Red Cell Distribution Width 21 % (10-15); White Blood Count 7.6 10^3/uL (3.5-10.8)
[2021-10-20 04:02] LABS: ABS Lymphocytes 0.8 10^3/ul (1.0-4.8); ABS Monocytes 0.6 10^3/ul (0-0.8); ABS Neutrophils 5.7 10^3/ul (1.5-7.7); Eosinophil % 0.2 %; Hematocrit 25 % (42-52); Hemoglobin 7.8 g/dL (14.0-18.0); Lymphocyte % 11.3 %; Mean Corpuscular HGB Conc 31 g/dL (31-36); Mean Corpuscular Hemoglobin 25 pg (27-31); Mean Corpuscular Volume 79 fL (80-94); Mean Platelet Volume 7.3 fL (7.4-10.4); Platelet Count 214 10^3/uL (150-450); Red Blood Count 3.17 10^6 /uL (4.18-5.48); Red Cell Distribution Width 21 % (10-15); White Blood Count 7.2 10^3/uL (3.5-10.8)
[2021-10-20 04:12] LABS: High Sensitivity Troponin 1 Hr 36 pg/mL (<20)
[2021-10-20] MEDS: NS 0.9% 1,000 ML IV SCH (05:20)
[2021-10-20] MEDS: Heparin 5000 UNITS/ML 1 mL VIAL SUBCUT SCH ×3 (05:21→20:59)
[2021-10-20] MEDS: Vancomycin 1,250 MG in NS 0.9% 250 ml 250 ML IVPB SCH ×2 (05:21→19:03)
[2021-10-20] MEDS ORDERED: ALTEPLASE ONE (08:00)
[2021-10-20] MEDS ORDERED: NS 0.9% ONE (08:00)
[2021-10-20 11:05] LABS: Corrected Retic Count 1.1 % (0.5-1.5); Hematocrit for Retic CNT 25 % (42-52); Immature Retic Fraction 0.43; RBC Retic Count 3.18 10^6/uL (4.18-5.48)
[2021-10-20] MEDS ORDERED: Polyethylene Glycol 3350 17 GM PACKET PO PRN (12:05)
[2021-10-20] MEDS ORDERED: Gadoteridol (CONTRAST) 279.3 MG/ML 10 ML IV ONE (14:28)
[2021-10-20] MEDS: Senna TAB 8.6 mg TAB PO PRN (21:07)
[2021-10-20] MEDS ORDERED: Morphine 10 MG/ML VIAL (1 ml) IV PRN (21:35)
[2021-10-20] MEDS: Atropine 1% OPHTH.SOL 1 DROP BTL 2-5 ML RIGHT EYE SCH (22:22)
[2021-10-21 05:58] LABS: ABS Eosinophils 0.1 10^3/ul (0-0.6); ABS Lymphocytes 0.8 10^3/ul (1.0-4.8); ABS Monocytes 0.4 10^3/ul (0-0.8); ABS Neutrophils 3.4 10^3/ul (1.5-7.7); Eosinophil % 1.8 %; Hematocrit 22 % (42-52); Hemoglobin 6.7 g/dL (14.0-18.0); Lymphocyte % 17.8 %; Mean Corpuscular HGB Conc 31 g/dL (31-36); Mean Corpuscular Hemoglobin 25 pg (27-31); Mean Corpuscular Volume 79 fL (80-94); Mean Platelet Volume 7.1 fL (7.4-10.4); Nucleated Red Blood Cells % 0.1; Platelet Count 196 10^3/uL (150-450); Red Blood Count 2.75 10^6 /uL (4.18-5.48); Red Cell Distribution Width 20 % (10-15); White Blood Count 4.7 10^3/uL (3.5-10.8)
[2021-10-21] MEDS ORDERED: Vancomycin Trough Check NOTE FOLLOW UP ONE (06:00)
[2021-10-21] MEDS: Heparin 5000 UNITS/ML 1 mL VIAL SUBCUT SCH ×3 (06:28→22:59)
[2021-10-21 06:46] LABS: Vancomycin Trough 14.5 mcg/mL; eGFR CKD-EPI 102.3 (>60)
[2021-10-21] MEDS: Vancomycin 1,250 MG in NS 0.9% 250 ml 250 ML IVPB SCH ×2 (08:30→17:56)
[2021-10-21] MEDS: Atropine 1% OPHTH.SOL 1 DROP BTL 2-5 ML RIGHT EYE SCH ×2 (09:12→20:14)
[2021-10-21] MEDS ORDERED: Magnesium Hydroxide LIQ 30 ML UDC PO ONE (13:57)
[2021-10-21] MEDS: Senna TAB 8.6 mg TAB PO PRN (14:17)
[2021-10-21 16:29] LABS: Hematocrit 25 % (42-52); Hemoglobin 7.6 g/dL (14.0-18.0); Mean Corpuscular HGB Conc 31 g/dL (31-36); Mean Corpuscular Hemoglobin 24 pg (27-31); Mean Corpuscular Volume 79 fL (80-94); Mean Platelet Volume 7.3 fL (7.4-10.4); Platelet Count 230 10^3/uL (150-450); Red Blood Count 3.16 10^6 /uL (4.18-5.48); Red Cell Distribution Width 20 % (10-15); White Blood Count 5.1 10^3/uL (3.5-10.8)
[2021-10-22] MEDS: Vancomycin 1,250 MG in NS 0.9% 250 ml 250 ML IVPB SCH (06:05)
[2021-10-22] MEDS: Heparin 5000 UNITS/ML 1 mL VIAL SUBCUT SCH (06:06)
[2021-10-22] MEDS: Atropine 1% OPHTH.SOL 1 DROP BTL 2-5 ML RIGHT EYE SCH (09:04)
[2021-10-22] MEDS ORDERED: DALBAVANCIN HCL (NF) 500 MG/25 ML VIAL IVPB ONE ×3 (12:36)
[2021-10-22 12:59] VITALS: BP 140/88
[2021-10-22] MEDS ORDERED: DALVANCE 1500 MG IV ONCE (for CrCl >/= 30 or regular HD) IVPB ONE (13:30)
[2021-10-22] MEDS ORDERED: Sulfamethox/Trimethoprim DS TAB 800/160 mg PO SCH (21:00)
[2021-10-23] MEDS ORDERED: Vancomycin Trough Check NOTE FOLLOW UP ONE (05:30)
== END 2021-10-22 15:10 | disposition left against medical advice (07) | DRG 134 ==
LOC: ED 13:15 → EDHOLD 17:40 → SUATTDRO 17:40 → EDHOLD 19:16 → ICU 19:33 → MEDTELE 10-19 16:20
PROVIDERS: ADMIT Internal Medicine; ATTEND Internal Medicine